=== PATIENT | male | born 1970 | race Caucasian/White ===

== ENCOUNTER → 2018-10-28 10:02 | Outpatient (CLI) | payer OTHER, SELFPAY ==
--- NOTE | 2018-10-28 10:16 | XR_ITS ---
XR elbow LT min 3V HISTORY: ITS.REASON: radial head fracture do not twist elbow ORDERING PHYSICIAN: Nicolle Agudelo MD PATIENT AGE: 48 years COMPARISON: None FINDINGS: There is comminuted mid shaft radial fracture mildly displaced. No obvious elbow fracture or displaced fat pad. IMPRESSION: 1. No obvious elbow fracture. CT may confirm if clinical suspicion is high 2. Comminuted mildly displaced midshaft radial fracture
== END ==
PROVIDERS: Visit Provider Orthopaedic Surgery
DX: S52.122A Displaced fracture of head of left radius, initial encounter for closed fracture (principal)
CPT/HCPCS: 73080

== ENCOUNTER → 2018-11-02 10:07 | Outpatient (CLI) | payer OTHER, SELFPAY ==
[2018-11-02 10:47] LABS: Basophils % 0.4 % (0.1-2.0); Eosinophils # 0.1 K/mm3 (0.0-0.4); Eosinophils % 1.5 % (0.1-12.0); Hematocrit 43.9 % (42.0-52.0); Lymphocytes # 1.2 K/mm3 (0.7-4.5); Mean Corpuscular HGB Conc 34.2 g/dL (31.8-35.4); Mean Corpuscular Hemoglobin 30.8 pg (27.0-31.2); Mean Corpuscular Volume 89.9 fl (80-94); Mean Platelet Volume 9.1 fl (7.4-10.4); Monocytes # 0.5 K/mm3 (0.1-1.0); Monocytes % 8.1 % (1.7-9.3); Neutrophils # 4.6 K/mm3 (1.8-7.8); Neutrophils % 71.1 % (37.0-80.0); Platelet Count 278 K/mm3 (142-424); Red Blood Count 4.88 M/mm3 (4.60-6.20); Red Cell Distribution Width 12.6 % (11.5-17.5); White Blood Count 6.5 K/mm3 (4.8-10.8)
[2018-11-02 12:06] LABS: Alanine Aminotransferase 58 U/L (12-78); Albumin/Globulin Ratio 1.1 (1.1-1.8); Alkaline Phosphatase 119 U/L (46-116); Anion Gap 13.4 mEq/L (5-15); Aspartate Amino Transferase 39 U/L (15-37); Bilirubin,Total 0.7 mg/dL (0.2-1.0); Blood Urea Nitrogen 11 mg/dL (7-18); Calcium 9.5 mg/dL (8.5-10.1); Carbon Dioxide 26 mmol/L (21.0-32.0); Chloride 104 mmol/L (98-107); Creatinine,Serum 1.27 mg/dL (0.70-1.30); Estimated Glomerular Filt Rate 61 ml/min (>60); GFR (African American) 74 ML/MIN (>60); Globulin 3.6 gm/dl (1.3-3.2); Glucose 86 mg/dL (74-106); Potassium 4.4 mmoL/L (3.5-5.1); Sodium 139 mmol/L (136-145); Total Protein,Serum 7.6 gm/dL (6.4-8.2)
== END ==
PROVIDERS: Visit Provider Orthopaedic Surgery
DX: Z01.818 Encounter for other preprocedural examination (principal); S52.92XA Unspecified fracture of left forearm, initial encounter for closed fracture
CPT/HCPCS: 36415; 80053; 85025

== ENCOUNTER 2018-11-03 08:37 | Observation (INO) ==
--- NOTE | 2018-11-03 09:59 | Progress Note ---
[facility] Anesthesia Checklist - Patient Identification Patient Identification: Arm Band - Structural Data Admitted From: Home Planned Operative Procedure/s: orif left radius Consent for Planned Operative Procedure(s) Verified: Yes Verified Documents: Surgical Consent, History and Physical - NPO Status Verified Time NPO: 00:00 - Additional verifications Anesthesia Reactions: No - Airway Assessment C-Spine Mobility Assessed: Yes (mp2) TMJ Mobility Assessed: Yes Dentition: Good Dentition - Neurological Assessment Level of Consciousness: Awake, Alert - Anesthesia Plan Anesthesia Risk discussed: Yes Anesthesia Plan: Verified ASA Class: II Anesthesia Type: General (with supraclavicular nerve block) [facility] History I have reviewed the patient's past medical history: Yes Medical History: Denies:: Cancer, Chronic Obstructive Pulmonary Disease (COPD), Diabetes Mellitus Type 1, Diabetes Mellitus Type 2, Internal Pacemaker, MRSA, Seizures *Have you ever received a pneumonia vaccine?: No *Have you received a flu vaccine this season?: No Other Medical History: Denies: Blood Transfusion Reaction Other Surgeries: Yes: No Previous Surgery. No: Pacemaker Amputation: No Fractures: Yes (left arm) - *Social History Educational Level: Attended College Smoking Status: Former smoker Tobacco Type: smokeless tobacco # Packs/Day (cigarettes): 1 Alcohol Intake: never Alcohol Intake Frequency:: 0-2 drinks per day *Occupational Status:: unemployed *Travel in the last 8 weeks: None - Psychiatric History Expresses thoughts of harming self/others: None Suicide Plan Description: No Plan Family Hx:: No significant family history
--- NOTE | 2018-11-03 15:14 | Progress Note ---
[facility] Anesthesia Record Part I Intake, IV Amount: 1,650 Estimated blood loss (mL): 10 Urine output (mL): 0 Blood Products used (#): none Blood Pressure: 118/47 SaO2: 93 Pulse Rate: 116 Respiratory Rate: 20 Temperature: 99.5 F Patient is:: Awake, Nasal O2, Stable Stable to PACU at:: 15:07
--- NOTE | 2018-11-03 15:15 | Progress Note ---
[facility] Anesthesia Record Part II Discharge Time: 15:37 Destination: Medical Surgical Department PACU nurse assessment reviewed?: Yes Patient Condition:: Good Anesthesia Complications:: None Swallowing reflex intact?: Yes Cyanosis?: No
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
--- NOTE | 2018-11-03 22:45 | History & Physical Report ---
*Admission Date: 11/03/18 *Chief complaint: s/p ORIF L radius *History of present illness: 48yo M without medical comorbidities who underwent ORIF L radial shaft fx earlier today. Admitted for pain control, elevation/observation of swelling, neurovascular checks, and IV antibiotics. There were no complications during the case. [facility] History I have reviewed the patient's past medical history: Yes Medical History: Denies:: Cancer, Chronic Obstructive Pulmonary Disease (COPD), Diabetes Mellitus Type 1, Diabetes Mellitus Type 2, Internal Pacemaker, MRSA, Seizures *Have you ever received a pneumonia vaccine?: No *Have you received a flu vaccine this season?: No Other Medical History: Denies: Blood Transfusion Reaction Other Surgeries: Yes: No Previous Surgery. No: Pacemaker Amputation: No Fractures: Yes (left arm) - *Social History Educational Level: Attended College Smoking Status: Former smoker Tobacco Type: smokeless tobacco # Packs/Day (cigarettes): 1 Alcohol Intake: current Alcohol Intake Frequency:: 3 or more drinks per day *Occupational Status:: unemployed Household Members: significant other, other *Travel in the last 8 weeks: None - Psychiatric History Expresses thoughts of harming self/others: None Suicide Plan Description: No Plan Family Hx:: No significant family history Review of Systems - Review of Systems Review of systems:: pertinent systems reviewed and negative unless documented below Meds Home Medications Medication Instructions Recorded Confirmed Type acetaminophen 300 mg-codeine 30 mg 1 tab PO Q8H PRN 10/28/18 11/03/18 History tablet sulfamethoxazole 800 1 tab PO DAILY 7 Days #7 tab 10/28/18 11/03/18 Rx mg-trimethoprim 160 mg tablet Allergies Allergy/AdvReac Type Severity Reaction Status Date / Time Penicillins Allergy Verified 11/03/18 08:55 Exam Vital signs and Labs for Last 24 Hours: Temp Pulse Resp BP Pulse Ox 98.4 F 99 H 12 111/71 95 11/03/18 18:05 11/03/18 18:05 11/03/18 18:05 11/03/18 18:05 11/03/18 18:05 I & O for Last 24 hours: Intake & Output 11/01/18 11/02/18 11/03/18 11/04/18 11:59 11:59 11:59 11:59 Intake Total 2250 / 2250 Balance 2250 / 2250 Weight 200 lb 200 lb - *Routine Extremities Exam Comments: PACU: patient awake but lethargic, denies pain in L forearm unable to lift L arm due to nerve block sensation diminished LUE in m/r/u distributions; not absent, but qualitatively diminished palpable radial pulse at the L wrist, BCR all digits, fingers are warm/pink splint intact LUE Results - Labs Labs: All other labs normal. Assessment and Plan (1) Fracture of left radius Current visit: No Status: Acute Qualifiers: Encounter type: initial encounter Radius location: shaft Fracture type: closed Fracture morphology: comminuted Fracture alignment: displaced Quali fied Code(s): S52.352A - Displaced comminuted fracture of shaft of radius, left arm, initial encounter for closed fracture Category: Medical Code(s): S52.92XA - Unspecified fracture of left forearm, initial encounter for closed fracture - Assessment and plan all Dx Assessment and Plan for all problems:: 48yo M s/p ORIF L radial shaft fx -- continue clindamycin for 24 hours -- elevate/ice LUE -- frequent neurovascular checks -- pain control -- anticipate d/c home tomorrow
--- NOTE | 2018-11-04 07:38 | Pharmacy Consult Notes ---
[facility] Pharmacy VTE Monitoring - Patient Demographics Admission date: 11/03/18 Report Date: 11/04/18 Time: 07:38 Allergies/Adverse Reactions: Patient Allergies Penicillins Allergy (Verified 11/03/18 08:55) Height: 1.73 m Weight: 89.613 kg - VTE Risk Was VTE Risk Assessment Performed: Yes VTE Score: 1 VTE Risk Level: Very Low Risk - Prophylaxis VTE Prophylaxis Ordered?: Yes Types of VTE Prophylaxis: IPCS Thigh High Location of Applied Device: Bilateral Lower Extremeties - VTE Diagnosis Confirmed Treatment or plan recommended: Continue Current Treatment
--- NOTE | 2018-11-04 08:41 | Progress Note ---
Subjective Date: 11/04/18 Time: 08:00 Principal diagnosis: s/p ORIF L radial shaft fx Interval history: The patient is doing well this morning. He has kept the arm elevated overnight as instructed. His nerve block appears to have worn off, with full sensation/motor returning to the fingers. Reports some discomfort in the thumb but is otherwise doing well and would like to go home. PN: Obj Ex Vital signs: Temp Pulse Resp BP Pulse Ox 98.4 F 92 H 16 112/57 L 94 L 11/04/18 08:00 11/04/18 08:00 11/04/18 08:00 11/04/18 08:00 11/04/18 08:00 - Routine Extremities Exam Comments: LUE with forearm splint in place, intact and well-padded AIN/PIN/ulnar nerves motor intact LUE SILT m/r/u distribution LUE fingers warm with brisk cap refill L hand mild ecchymosis upper arm around elbow with yellow discoloration; from initial injury Progress Note: A&P (1) Fracture of left radius Status: Acute Current Visit: No Assessment and Plan for All Diagnoses:: 48yo M POD 1 s/p ORIF L radial shaft fx, with significant swelling before and after surgery and dorsal forearm abrasions, admitted for elevation/ice and monitoring of swelling, IV antibiotics and pain control. Doing well this morning, will d/c home with f/u in 1 week.
--- NOTE | 2018-11-04 09:12 | Discharge Summary ---
General - General Admission date:: 11/03/18 Discharge date: 11/04/18 HPI HPI: 48yo M without medical comorbidities who underwent ORIF L radial shaft fx earlier today. Admitted for pain control, elevation/observation of swelling, neurovascular checks, and IV antibiotics. There were no complications during the case. Hospital Course Hospital Course: No acute events overnight, patient kept L arm elevated as instructed. Ice applied to arm, pain meds given. Completed 23hr clindamycin. Appropriate for d/c home the morning of POD 1. Objective Vital signs: Temp Pulse Resp BP Pulse Ox 98.4 F 92 H 16 112/57 L 94 L 11/04/18 08:00 11/04/18 08:00 11/04/18 08:00 11/04/18 08:00 11/04/18 08:00 - *Routine Extremities Exam Comments: LUE with forearm splint in place, intact and well-padded AIN/PIN/ulnar nerves motor intact LUE SILT m/r/u distribution LUE fingers warm with brisk cap refill L hand mild ecchymosis upper arm around elbow with yellow discoloration; from initial injury DS: Diagnosis - Discharge Diagnosis (1) Fracture of left radius Status: Acute Discharge Plan - Patient Discharge Instructions ACTIVITY: Continue current activity, Other (non-weightbearing left upper extremity) DIET: continue same diet Additional Instructions: continue elevating the left arm as much as possible may apply ice to left arm PRN non-weightbearing left upper extremity do not remove splint, keep clean and dry may shower if splint is covered and does NOT GET WET f/u with Dr. Agudelo in 1 week Patient Instructions: Wrist Fracture, DI for Wrist Fracture, DI for Forearm Fracture, DI for Surgical Site Infection - Follow up Plan Follow up with: Nicolle Agudelo MD [Staff Physician] - 1 week Disposition: Home, Self-[facility] Medications: Home Medications Medication Instructions Recorded Confirmed Type acetaminophen 300 mg-codeine 30 mg 1 tab PO TIDP PRN 10/28/18 11/04/18 History tablet sulfamethoxazole 800 1 tab PO DAILY 7 Days #7 tab 10/28/18 11/03/18 Rx mg-trimethoprim 160 mg tablet Oxycodone HCl/Acetaminophen 1 tab PO Q4H PRN #30 tab 11/04/18 Rx [Percocet 5/325mg tablet] Prescriptions/Medication Reconciliation: New Oxycodone HCl/Acetaminophen [Percocet 5/325mg tablet] 1 tab PO Q4H PRN #30 tab PRN Reason: Moderate To Severe Pain Discontinued acetaminophen 300 mg-codeine 30 mg tablet 1 tab PO TIDP PRN PRN Reason: pain sulfamethoxazole 800 mg-trimethoprim 160 mg tablet 1 tab PO DAILY 7 Days #7 tab
== END 2018-11-04 10:05 | disposition home or self-care (01) ==
LOC: OR 08:37 → 2ND 08:37
PROVIDERS: ADMIT Orthopaedic Surgery; ATTEND Orthopaedic Surgery
CPT/HCPCS: 73090; 76000; 96374; C1713; C1776; G0378; J2405; S0077

== ENCOUNTER → 2018-11-11 10:06 | Outpatient (CLI) | payer OTHER, SELFPAY ==
--- NOTE | 2018-11-11 10:12 | XR_ITS ---
XR forearm LT 2V HISTORY: Follow-up fracture/ORIF ITS.REASON: ap, lateral ORDERING PHYSICIAN: Nicolle Agudelo MD PATIENT AGE: 48 years COMPARISON: 11/03/2018 FINDINGS: Bone plate is present over the mid shaft of the radius with good alignment of the midshaft fracture. No significant callus formation. IMPRESSION: Good alignment status post ORIF radial fracture
== END ==
PROVIDERS: Visit Provider Orthopaedic Surgery
DX: S52.92XA Unspecified fracture of left forearm, initial encounter for closed fracture (principal)
CPT/HCPCS: 73090

== ENCOUNTER → 2018-11-25 09:48 | Outpatient (CLI) | payer OTHER, SELFPAY ==
--- NOTE | 2018-11-25 09:51 | XR_ITS ---
XR forearm LT 2V HISTORY: Follow-up fracture ITS.REASON: OUT OF CAST AP/Lateral ORDERING PHYSICIAN: Nicolle Agudelo MD PATIENT AGE: 48 years COMPARISON: 11/11/2018 FINDINGS: Status post ORIF mid shaft radial fracture with good alignment. Fracture line is still visible. Lucencies are present in the radius from different prior screw holes. IMPRESSION: No change status post ORIF mid shaft radial fracture with good alignment
== END ==
PROVIDERS: Visit Provider Orthopaedic Surgery
DX: S52.92XA Unspecified fracture of left forearm, initial encounter for closed fracture (principal)
CPT/HCPCS: 73090

== ENCOUNTER → 2022-03-20 06:32 | Outpatient (CLI) | payer OTHER, SELFPAY ==
[2022-03-20 21:37] LABS: Adenovirus,PCR Not Detected (NotDetected); Bordetella Pertussis Not Detected (NotDetected); Chlamydophila Pneumoniae, PCR Not Detected (NotDetected); Coronavirus 19, PCR Not Detected (NotDetected); Coronavirus 229E Not Detected (NotDetected); Coronavirus NL63 Not Detected (NotDetected); Coronavirus OC43 Not Detected (NotDetected); Coronovirus HKU1,PCR Not Detected (NotDetected); Human Metapneumovirus Not Detected (NotDetected); Influenza A, PCR Not Detected (NotDetected); Influenza AH1, 2009 Not Detected (NotDetected); Influenza AH1, PCR Not Detected (NotDetected); Influenza AH3,PCR Not Detected (NotDetected); Influenza B, PCR Not Detected (NotDetected); Mycoplasma Pneumoniae, PCR Not Detected (NotDetected); Parainfluenza 1, PCR Not Detected (NotDetected); Parainfluenza 3, PCR Not Detected (NotDetected); Parainfluenza 4, PCR Not Detected (NotDetected); Respiratory Syncytial Virus Not Detected (NotDetected); Rhinovirus/Enterovirus Not Detected (NotDetected)
[2022-03-20 22:18] LABS: Basophils # 0.1 K/mm3 (0-0.2); Basophils % 0.8 % (0.1-2.0); Eosinophils # 0.3 K/mm3 (0.0-0.4); Eosinophils % 3.3 % (0.1-12.0); Hemoglobin 16.2 g/dL (14.1-18.0); Lymphocytes # 1.3 K/mm3 (0.7-4.5); Lymphocytes % 17.1 % (10-50); Mean Corpuscular HGB Conc 31.8 g/dL (31.8-35.4); Mean Corpuscular Hemoglobin 29.7 pg (27.0-31.2); Mean Corpuscular Volume 93.3 fl (80-94); Mean Platelet Volume 11.5 fl (7.4-10.4); Monocytes # 0.8 K/mm3 (0.1-1.0); Monocytes % 10.1 % (1.7-9.3); Neutrophils # 5.4 K/mm3 (1.8-7.8); Neutrophils % 68.8 % (37.0-80.0); Platelet Count 251 K/mm3 (142-424); Red Blood Count 5.46 M/mm3 (4.60-6.20); Red Cell Distribution Width 12.8 % (11.5-17.5); White Blood Count 7.8 K/mm3 (4.8-10.8)
[2022-03-21 22:33] LABS: Parainfluenza 2, PCR Detected (NotDetected)
== END ==
PROVIDERS: PCP Nurse Practitioner; Visit Provider Nurse Practitioner
DX: Z20.822 Contact with and (suspected) exposure to COVID-19 (principal); J12.2 Parainfluenza virus pneumonia; J06.9 Acute upper respiratory infection, unspecified
CPT/HCPCS: 85025; 87581; 87632; 87798; C9803; U0003; U0005

== ENCOUNTER → 2022-05-09 10:15 | Outpatient (CLI) | payer OTHER, SELFPAY ==
[2022-05-09 19:39] LABS: Basophils # 0.1 K/mm3 (0-0.2); Eosinophils # 0.4 K/mm3 (0.0-0.4); Eosinophils % 4.8 % (0.1-12.0); Hemoglobin 15.7 g/dL (14.1-18.0); Lymphocytes # 1.8 K/mm3 (0.7-4.5); Lymphocytes % 21.8 % (10-50); Mean Corpuscular HGB Conc 32.6 g/dL (31.8-35.4); Mean Corpuscular Hemoglobin 29.5 pg (27.0-31.2); Mean Corpuscular Volume 90.4 fl (80-94); Mean Platelet Volume 11.6 fl (7.4-10.4); Monocytes # 0.6 K/mm3 (0.1-1.0); Monocytes % 6.9 % (1.7-9.3); Neutrophils # 5.6 K/mm3 (1.8-7.8); Neutrophils % 65.6 % (37.0-80.0); Platelet Count 255 K/mm3 (142-424); Red Blood Count 5.31 M/mm3 (4.60-6.20); Red Cell Distribution Width 13.1 % (11.5-17.5); White Blood Count 8.5 K/mm3 (4.8-10.8)
[2022-05-09 20:15] LABS: Alanine Aminotransferase 67 U/L (12-78); Albumin Level 3.9 g/dl (3.5-5.0); Albumin/Globulin Ratio 1.3 (1.1-1.8); Alkaline Phosphatase 138 U/L (38-126); Anion Gap 16.4 mEq/L (5-15); Aspartate Amino Transferase 49 U/L (17-59); Bilirubin,Total 0.7 mg/dl (0.2-1.3); Blood Urea Nitrogen 8 mg/dl (9-20); Calcium 9.1 mg/dl (8.4-10.2); Carbon Dioxide 26 mmol/L (22.0-30.0); Chloride 102 mmol/L (98-107); Estimated Glomerular Filt Rate 79 ml/min (>60); GFR (African American) 96 ML/MIN (>60); Globulin 2.9 g/dL (1.3-3.2); Glucose 94 mg/dl (74-100); Potassium 4.4 mmoL/L (3.5-5.1); Sodium 140 mmol/L (136-145); Total Protein,Serum 6.8 g/dl (6.3-8.2); Uric Acid 6.7 mg/dl (3.5-8.5)
== END ==
PROVIDERS: PCP Nurse Practitioner; Visit Provider Nurse Practitioner
DX: M79.672 Pain in left foot (principal)
CPT/HCPCS: 80053; 84550; 85025

== ENCOUNTER 2023-05-10 09:27 | Emergency (ER) | payer BC, SELFPAY ==
[2023-05-10 09:28] VITALS: BP 140/86; PULSE 98; RESP 18; TEMP 36.9; O2SAT 96; BMI 28.1
--- OUTSIDE RECORDS SUMMARY | 2023-05-10 09:36 | XMS_ITS | Continuity of Care Document ---
Author Name Unknown Organization [facility] o Address [address] [place] [address] Phone Care Team Providers Care Field Rep Name Role Phone Kevin Mejia MD Unavailable Unavailable Medications Medication Instructions Dosage Effective Dates (start - stop) Status Comments Medrol (Boby) 4 mg tablets in a dose pack take by Oral route Not Available - Active Procedures Procedure Date Office/outpatient visit,[facility] 2017 X-ray exam of foot, complete Advance Directives Directive Yes / No Effective Date File Name No Information Encounters Encounter Description Practice Location Reason(s) For Visit Diagnoses Date Provider Providers Copied on Encounter Office/outpat ient visit,[facility] [place], [address] [place], [address], [place] tel:[phone] [facility] foot (chief complaint) Pain in left foot Roberto Brown. [address], [address], [place], [place], [id number] , [place]. tel:[phone] Family History Family Member Type Diagnosis Age At Onset No Information Payers Payer name Insurance type Covered constitution party ID Authorednisea tikane(s) MedBen - [id number]
[2023-05-10 09:55] LABS: UTC Strep Screen (Rapid) Negative (Negative)
--- NOTE | 2023-05-10 10:03 | EXP.UTC ---
Discharge Plan Disposition Patient Disposition: Home, Self-Care Condition: Good Prescriptions Prescriptions: New fxctzroedczwnkc-usdrdystw-TQ [Bromfed DM] 2-30-10 mg/5 mL syrup 10 ml PO Q6H PRN (Reason: cold symptoms) Qty: 200 0RF azithromycin 250 mg tablet See Rx Instructions .ROUTE .COMPLEX Qty: 6 0RF Rx Instructions: For 250 mg dose pack: take 500 mg today (day 1), then 250 mg for 4 days (days 2-5) No Action colchicine (gout) 0.6 mg tablet 0.6 mg PO .COMPLEX Qty: 60 0RF Rx Instructions: 0.6 mg orally Today: take 2 tabs now and take 1 tab one hour later; Tomorrow: start 1 tab BID Referrals Follow up/Referrals: Jalyn Castano APRN [Primary Care Provider] - See instructions Activity Restrictions/Add. Instructions Additional Instructions/Restrictions: If symptoms do not improve with Bromfed, may take Azithromycin in a week. Clinical Impressions Clinical Impression: Acute URI Instructions Patient Instructions: DI for Viral Upper Respiratory Infection -- Adult Discharge ED Provider: Tory Gunn [facility] General Stated complaint: SORE THROAT Mode of Arrival: Ambulatory Source of Information: Patient Limitations: No Limitations Time Seen by Provider: 05/10/23 09:52 Description of Symptoms (Recalled from Triage Doc. by RN): sore throat HEENT Symptoms (Recalled from RN notes): Yes Resp Symptoms (Recalled from RN notes): No Skin Symptoms (Recalled from RN notes): No MS Symptoms (Recalled from RN notes): No Functional Status (Recalled from RN notes): n/a History of Present Illness Provider Complaint: Pt states that he has a sore throat, cough, runny nose, post nasal drainage and generalized malaise. He states that he has taken Tylenol for his symptoms. Denies sick contact. Does not wish to be tested for flu/Covid. Requests to be tested for strep. Related Data Previous Rx's Medication Instructions Recorded colchicine (gout) 0.6 mg tablet 0.6 mg PO .COMPLEX #60 tabs 08/05/22 azithromycin 250 mg tablet See Rx Instructions PO .COMPLEX #6 05/10/23 tabs ojjraytduogsjpn-ogurtmufxwtnqrk-AE 10 ml PO Q6H PRN cold symptoms 10/21/23 2 mg-30 mg-10 mg/5 mL oral syrup #200 mL (Bromfed DM) Allergies Allergy/AdvReac Type Severity Reaction Status Date / Time Penicillins Allergy Verified 05/10/23 09:47 penicillin G AdvReac Verified 05/10/23 09:47 penicillin V AdvReac Verified 05/10/23 09:47 Worker's Comp Is this a Worker's Comp case?: No [facility] Disclaimer: The information contained in this section may have been updated after the patient was seen, as this information can be updated by other users. Medical History Sore throat Family History Other Coronary artery disease Diabetes Social History Smoking Status: Former smoker tobacco type: smokeless tobacco alcohol intake: former current occupational status: employed and unemployed Travel in the last 8 weeks: None household members: significant other and other caffeine: Yes ROS Obtained: Yes All systems reviewed & no additional complaints except as documented Constitutional Constitutional: Reports system reviewed and no additional complaints, except as documented, Reports headache(s) and Reports malaise Eyes Eyes: Reports system reviewed and no additional complaints, except as documented ENT Ears, Nose, Mouth, and Throat: Reports system reviewed and no additional complaints, except as documented, Reports headache(s), Reports nasal congestion, Reports nasal discharge, Reports odynophagia, Reports post nasal drip, Reports sinus pressure and Reports sore throat Cardiovascular Cardiovascular: Reports system reviewed and no additional complaints, except as documented Respiratory Respiratory: Reports system reviewed and no additional complaints, except as
[2023-05-10 10:09] VITALS: BP 140/86; PULSE 98; RESP 18; TEMP 36.9; O2SAT 98
== END 2023-05-10 10:09 | disposition home or self-care (01) ==
PROVIDERS: Emergency Provider Nurse Practitioner Family; PCP Nurse Practitioner
DX: J06.9 Acute upper respiratory infection, unspecified (principal); R53.81 Other malaise; Z87.891 Personal history of nicotine dependence; B34.9 Viral infection, unspecified
CPT/HCPCS: 87880; 99204; 99212; G0463

== ENCOUNTER 2024-03-02 16:57 | Emergency (ER) | payer BC, SELFPAY ==
[2024-03-02 17:29] VITALS: BMI 29.0
[2024-03-02 17:30] VITALS: BP 137/83; PULSE 88; RESP 18; TEMP 36.8; O2SAT 98; BMI 29.0
[2024-03-02 17:37] LABS: Basophils # 0.1 K/mm3 (0-0.2); Basophils % 0.4 % (0.1-2.0); Eosinophils # 0.1 K/mm3 (0.0-0.4); Eosinophils % 0.6 % (0.1-12.0); Hematocrit 46.2 % (42.0-52.0); Hemoglobin 14.9 g/dL (14.1-18.0); Lymphocytes # 1.4 K/mm3 (0.7-4.5); Lymphocytes % 9.2 % (10-50); Mean Corpuscular HGB Conc 32.2 g/dL (31.8-35.4); Mean Corpuscular Hemoglobin 30.1 pg (27.0-31.2); Mean Corpuscular Volume 93.4 fl (80-94); Mean Platelet Volume 9.4 fl (7.4-10.4); Monocytes # 0.7 K/mm3 (0.1-1.0); Monocytes % 4.7 % (1.7-9.3); Neutrophils # 13.1 K/mm3 (1.8-7.8); Neutrophils % 85.1 % (37.0-80.0); Platelet Count 191 K/mm3 (142-424); Red Blood Count 4.95 M/mm3 (4.60-6.20); Red Cell Distribution Width 13.8 % (11.5-17.5); White Blood Count 15.4 K/mm3 (4.8-10.8)
[2024-03-02 17:38] LABS: MANUAL DIFFERENTIAL MANUAL DIFFERENTIAL (MANUAL DIFF)
[2024-03-02 17:46] LABS: Microscopic, Urine URINE MICROSCOPIC (MICROSCOPIC)
[2024-03-02 17:46] LABS: Albumin Level 4.2 g/dl (3.5-5.0); Chloride 106 mmol/L (98-107); Potassium 4.5 mmoL/L (3.5-5.1); Sodium 137 mmol/L (136-145)
[2024-03-02 17:49] LABS: Alanine Aminotransferase 29 U/L (12-78); Albumin/Globulin Ratio 1.4 (1.1-1.8); Alkaline Phosphatase 86 U/L (38-126); Amylase 61 U/L (30-110); Anion Gap 6.5 mEq/L (5-15); Aspartate Amino Transferase 32 U/L (17-59); Bilirubin,Total 1.3 mg/dl (0.2-1.3); Blood Urea Nitrogen 9 mg/dl (9-20); Calcium 8.9 mg/dl (8.4-10.2); Carbon Dioxide 29 mmol/L (22.0-30.0); Creatinine Clearance Estimated 94 mL/min (50-200); Estimated Glomerular Filt Rate 71 ml/min (>60); GFR (African American) 85 ML/MIN (>60); Globulin 2.9 g/dL (1.3-3.2); Glucose 96 mg/dl (74-100); Total Protein,Serum 7.1 g/dl (6.3-8.2)
[2024-03-02 17:50] LABS: Lipase 38 U/L (23-300)
[2024-03-02 18:00] VITALS: BP 134/87; PULSE 83; O2SAT 97
[2024-03-02 18:01] LABS: Appearance,Urine Clear (Clear); Color,Urine Yellow (Yellow); Glucose,Urine (UA) Negative (Negative); PH,Urine 6.5 (5.0-8.5); Protein,Urine Negative (Negative); Specific Gravity, Urine <= 1.005 (1.005-1.030)
[2024-03-02 18:02] LABS: Bilirubin,Urine Negative (Negative); Blood, Urine Negative (Negative); Ketones,Urine Negative (Negative); Leukocyte Esterase,Urine Negative (Negative); Nitrate,Urine Negative (Negative)
[2024-03-02 18:08] LABS: Lymphocytes % 8 % (10-50); Monocytes % 6 % (2-9); Neutrophils % 86 % (42-76); Total Cells Counted 100
[2024-03-02 18:09] LABS: Platelet Estimate Normal; RBC Morphology Normal
[2024-03-02 18:22] LABS: RBC,Urine Occasional #/hpf (0-3); WBC,Urine Occasional #/hpf (0-3)
[2024-03-02 18:23] LABS: Bacteria,Urine Trace /lpf
[2024-03-02 18:30] VITALS: BP 131/92; PULSE 87; RESP 16; O2SAT 96
--- NOTE | 2024-03-02 19:00 | CT_ITS ---
PROCEDURE INFORMATION: Exam: CT Abdomen And Pelvis With Contrast Exam date and time: 03/02/2024 7:16 PM Age: 53 years old Clinical indication: Abdominal pain; Generalized; Additional info: Diffuse abd pain, worse on the right side TECHNIQUE: Imaging protocol: Computed tomography of the abdomen and pelvis with contrast. Radiation optimization: All CT scans at this facility use at least one of these dose optimization techniques: automated exposure control; mA and/or kV adjustment per patient size (includes targeted exams where dose is matched to clinical indication); or iterative reconstruction. Contrast material: ISOVUE; Contrast volume: 75 ml; Contrast route: IV; COMPARISON: No relevant prior studies available. FINDINGS: Lungs: Small left upper lobe calcified granuloma. Mild atelectasis. Liver: Possible hepatic steatosis. No mass. Gallbladder and biliary ducts: Normal. No calcified stones. No ductal dilation. Pancreas: Normal. No ductal dilation. Spleen: Borderline splenomegaly. Adrenal glands: Normal. No mass. Kidneys and ureters: 1.1 cm left kidney superior pole cyst. No hydronephrosis. Stomach and bowel: Focal wall thickening and surrounding inflammatory fat stranding of the mid sigmoid colon, occurring on a background of diverticular disease. Appendix: No evidence of appendicitis. Intraperitoneal space: Unremarkable. No free air. No significant fluid collection. Vasculature: Unremarkable. No abdominal aortic aneurysm. Lymph nodes: Small calcified left hilar lymph node. Urinary bladder: Unremarkable as visualized. Reproductive: Unremarkable as visualized. Bones/joints: Degenerative changes. No acute fracture. Soft tissues: Small fat containing umbilical hernia. IMPRESSION: Acute uncomplicated mid sigmoid colon diverticulitis. COMMENTS: Consistent with the [employer]'s Incidental Findings Committee white paper (J Am Derrell Radiol 2018): Any incidental renal lesion less than 1 cm or classified as too small to characterize, or any incidental cystic renal lesion characterized as simple-appearing, is likely benign. No follow-up imaging is recommended for these lesions per consensus recommendations based on imaging criteria.
--- NOTE | 2024-03-02 19:05 | ED_ITS ---
Discharge Plan Disposition Patient Disposition: Home, Self-Care Prescriptions Prescriptions: New metronidazole 500 mg tablet 500 mg PO BID 10 Days Qty: 20 0RF ciprofloxacin HCl 500 mg tablet 500 mg PO BID 10 Days Qty: 20 0RF No Action acetaminophen 500 mg Tablet 1,000 mg PO DAILY naproxen sodium [Aleve] 220 mg Tablet 220 mg PO DAILY Referrals Follow up/Referrals: Felipe Alvarado MD [Staff Physician] - See instructions Provider,MD Abram [Primary Care Provider] - See instructions Activity Restrictions/Add. Instructions Additional Instructions/Restrictions: You have uncomplicated diverticulitis please follow-up outpatient with the surgeon once improved you likely will need a colonoscopy. Return with any significant worsening abdominal pain or high fevers. Clinical Impressions Clinical Impression: Acute diverticulitis Instructions Patient Instructions: DI for Acute Abdominal Pain Print Language Print Language: Tongan Discharge ED Provider: Jeff Cavazos General Adult HPI General Chief complaint: Abdominal Pain Stated complaint: abdominal pain Time Seen by Provider: 03/02/24 18:29 Mode of Arrival: Ambulatory Source of Information: Patient Limitations: No Limitations Description of Symptoms (Recalled from ER Triage Doc. by RN): PT STATES HE WAS AT WORK LAST NIGHT WHEN HE STARTED EXPERIENCING EPIGASTRIC ABDOMINAL PAIN AROUND 12:30, STATES IT IS A CONSTANT CRAMP THAT MOVES SIDE TO SIDE IN HIS ABDOMEN, STATES HE HAD A BM YESTERDAY THAT WAS NORMAL, DENIES N/V/ OR BLOOD IN URINE, STATES IT FEELS LIKE NOTHING IS MOVING, HASN'T ATE ANYTHING SINCE YESTERDAY FROM FEAR IT WILL MAKE THE PAIN WORSE History of Present Illness HPI narrative: Patient is a 53-year-old male presenting today with abdominal pain. Started last night around midnight progressively worsened throughout the day has peaked around 2 and has been constant and severe since that time he describes it as being diffuse. Nonlocalizing. Denies any history of any type of abdominal surgeries including cholecystectomy or appendectomy. Initially started out just as a achy type sensation but now is severely tender with any type of movement. Denies any nausea vomiting diarrhea fevers chills any other symptoms. Denies any past medical history Related Data Home Medications ?Medication ?Instructions ?Recorded ?Confirmed acetaminophen 500 mg tablet 1,000 mg PO DAILY 03/02/24 03/02/24 naproxen sodium 220 mg tablet 220 mg PO DAILY 03/02/24 03/02/24 (Aleve) Previous Rx's ?Medication ?Instructions ?Recorded ciprofloxacin HCl 500 mg tablet 500 mg PO BID 10 days #20 tabs 03/02/24 metronidazole 500 mg tablet 500 mg PO BID 10 days #20 tabs 03/02/24 Allergies Allergy/AdvReac Type Severity Reaction Status Date / Time Penicillins Allergy Verified 03/02/24 17:35 penicillin G AdvReac Verified 03/02/24 17:35 penicillin V AdvReac Verified 03/02/24 17:35 [facility] Disclaimer: The information contained in this section may have been updated after the patient was seen, as this information can be updated by other users. Medical History Sore throat Family History Other Coronary artery disease Diabetes Social History Smoking Status: Never smoker alcohol intake: former current occupational status: employed and unemployed Travel in the last 8 weeks: None household members: significant other and other caffeine: Yes ROS Obtained: Yes All systems reviewed & no additional complaints except as documented Physical Exam General General appearance: alert Respiratory Respiratory exam: Present normal lung sounds bilaterally Cardiovascular Cardiovascular exam: Present regular rate Abdominal Exam Abdominal exam: Present other (Patient is diffusely tender with guarding is maximally tender in the right upper and right lower quadrants) Neurological Exam Neurological exam: Present alert and oriented X3 Medical Decision Making Geoff Inquiry Pt receiving controlled substance: No Vital Signs: 03/02/24 17:30 03/02/24 18:00 03/02/24 18:30 Temperature 98.2 F Temperature Source Oral Pulse Rate 83 87 Pulse Rate [Left Radial] 88 Respiratory Rate 18 16 Blood Pressure 134/87 131/92 H Blood Pressure [Right Arm] 137/83 Blood Pressure Mean 101 Blood Pressure Mean [Right Arm] 101 Blood Pressure Source [Right Arm] Automatic Cuff Blood Pressure Position [Right Arm] Sitting 02 Sat by Pulse Oximetry 98 97 96 Oxygen Delivery Method Room Air Room Air Lab Data Lab results reviewed: Yes I reviewed the patient's lab results. Lab Results 03/02/24 17:30: WBC 15.4 H, RBC 4.95, Hgb 14.9, Hct 46.2, MCV 93.4, MCH 30.1, MCHC 32.2, RDW 13.8, Plt Count 191, MPV 9.4, Neut % (Auto) 85.1 H, Lymph % (Auto) 9.2 L, [place] % (Auto) 4.7, Eos % (Auto) 0.6, Baso % (Auto) 0.4, Neut # (Auto) 13.1 H, Lymph # (Auto) 1.4, [place] # (Auto) 0.7, Eos # (Auto) 0.1, Baso # (Auto) 0.1, Total Counted 100, Neutrophils % (Manual) 86 H, Lymphocytes % (Manual) 8 L, Monocytes % (Manual) 6, Platelet Estimate Normal, RBC Morphology Normal, Sodium 137, Potassium 4.5, Chloride 106, Carbon Dioxide 29, Anion Gap 6.5, BUN 9, Creatinine 1.10, Estimated Creat Clear 94, Estimated GFR 71, Est GFR ( Amer) 85, Glucose 96, Calcium 8.9, Total Bilirubin 1.3, AST 32, ALT 29, Alkaline Phosphatase 86, Total Protein 7.1, Albumin 4.2, Globulin 2.9, Albumin/Globulin Ratio 1.4, Amylase 61, Lipase 38 03/02/24 17:38: Urine Color Yellow, Urine Appearance Clear, Urine pH 6.5, Ur Specific [place] <= 1.005, Urine Protein Negative, Urine Glucose (UA) Negative, Urine Ketones Negative, Urine Blood Negative, Urine Nitrate Negative, Urine Bilirubin Negative, Urine Urobilinogen 1.0, Ur Leukocyte Esterase Negative, Urine RBC Occasional, Urine WBC Occasional, Ur Squamous Epith Cells 3-5, Urine Bacteria Trace 03/02/24 17:30 03/02/24 17:30 Orders (Tests/Meds): ED MEDICATIONS Generic Name Dose Route Start Last Admin Trade Name Freq PRN Reason Stop Dose Admin Sodium Chloride 10 ml 03/02/24 19:15 03/02/24 19:16 Sodium Chloride 0.9% 10ml Syr (Rad Only) IV 04/01/24 19:14 10 ml NEEDED PRN Administration Maintain IV Site Discontinued Medications Generic Name Dose Route Start Last Admin Trade Name Freq PRN Reason Stop Dose Admin Acetaminophen 1,000 mg 03/02/24 19:00 03/02/24 19:06 Acetaminophen 1,000mg/100ml Vial IV 03/02/24 19:01 1,000 mg ONCE ONE Administration Lactated Ringer's 1,000 mls @ 999 mls/hr 03/02/24 19:00 03/02/24 19:07 Lactated Ringer's 1000 Ml Bag IV 03/02/24 20:00 999 mls/hr .[id number] Administration Iopamidol 75 ml 03/02/24 19:15 03/02/24 19:16 Iopamidol-370 (76%);100ml Bottle IV 03/02/24 19:16 75 ml ONCE ONE Administration Morphine Sulfate 4 mg 03/02/24 19:12 03/02/24 19:23 Morphine 4mg/Ml Syringe IV 03/02/24 19:13 Not Given ONCE ONE Ondansetron HCl 4 mg 03/02/24 19:00 03/02/24 19:06 Ondansetron 4mg/2ml Vial IV 03/02/24 19:01 4 mg ONCE ONE Administration ORDERS Category Date Time Status CT abdomen pelvis w con Stat Cat Scan 03/02/24 19:00 Completed Amylase Stat Lab 03/02/24 17:30 Completed Complete Blood Count Auto Diff Stat Lab 03/02/24 17:30 Completed Comprehensive Metabolic Panel Stat Lab 03/02/24 17:30 Completed Lipase Stat Lab 03/02/24 17:30 Completed Urinalysis and Microscopic Stat Lab 03/02/24 17:38 Completed Medical Decision Narrative: 53-year-old with diffuse abdominal pain and tenderness. This is progressively worsened throughout the day is maximally tender in the right side I am highly concerned about surgical pathology including appendicitis cholecystitis etc. Will get a CT scan with contrast to further evaluate. IV fluids pain medicine nausea medicine have been administered will reassess. Reassessment 8:07 PM serial abdominal exams improved and benign. CT scan performed and labs returned. Does have leukocytosis CT scan shows acute diverticulitis without any evidence of perforation or abscess formation both on my personal interpretation and radiology read. Patient has a penicillin allergy will prescribe Cipro and Flagyl for him. He has not had a colonoscopy advised that he follow-up with our general surgeon after improvement in his symptoms to be evaluate for possible colonoscopy. Additionally he has been given return precautions to return with any worsening abdominal pain high fevers or other concerns. Critical Care Critical Care Time Critical Care Time: No
[2024-03-02] MEDS: ACETAMINOPHEN 1,000MG/100ML VIAL 1000 MG IV (19:06)
[2024-03-02] MEDS: ONDANSETRON 4MG/2ML VIAL 4 MG IV (19:06)
[2024-03-02] MEDS: LACTATED RINGERS 1000ML 1,000 ML 999 ML IV (19:07)
[2024-03-02] MEDS: IOPAMIDOL-370 (76%);100ML BOTTLE 75 ML IV (19:16)
[2024-03-02] MEDS: SODIUM CHLORIDE 0.9% 10ML SYR (RAD ONLY) 10 ML IV (19:16)
--- NOTE | 2024-03-02 19:23 | PC.NURSE ---
In to give pt ordered Morphine, pt reports he didn't want it, states he is hurting but does not want Morphine, offered other interventions, declined, made aware
[2024-03-02 20:13] VITALS: BP 122/84; PULSE 66; RESP 16; TEMP 36.7; O2SAT 96
== END 2024-03-02 20:14 | disposition home or self-care (01) ==
PROVIDERS: Emergency Provider Student in an Organized Health Care Education/Training Program
DX: R10.84 Generalized abdominal pain (principal); K57.32 Diverticulitis of large intestine without perforation or abscess without bleeding
CPT/HCPCS: 74177; 80053; 81001; 82150; 83690; 85007; 85025; 85027; 96361; 96374; 96375; 99285; J0131; J2405; J7120; Q9967